=== PATIENT | male | born 1960 | race Caucasian/White ===

== ENCOUNTER 2019-10-19 12:38 | Emergency (ER) | payer BC ==
[~2019-10-19] VITALS: Ht 177.8 cm; Wt 92.1 kg
[2019-10-19] MEDS ORDERED: MESALAMINE E0.375 GM PO (13:05)
[2019-10-19] MEDS ORDERED: TRAZODONE HCL100 MG PO (13:06)
[2019-10-19] MEDS ORDERED: FENOFIBRATE160 MG PO (13:06)
[2019-10-19] MEDS ORDERED: METOPROLOL SUCC50 MG PO (13:06)
[2019-10-19] MEDS ORDERED: MIRALAX17 GM PO (16:56)
== END 2019-10-19 17:17 | disposition home or self-care (01) ==
LOC: ED 12:38
DX: K59.00 Constipation, unspecified (principal); N20.0 Calculus of kidney; N28.89 Other specified disorders of kidney and ureter; I10 Essential (primary) hypertension; F17.200 Nicotine dependence, unspecified, uncomplicated; Z79.899 Other long term (current) drug therapy
CPT/HCPCS: 74018; 74176; 80053; 81001; 83690; 83735; 85025; 96361; 96374; 99284-25; J1885; J7030

== ENCOUNTER 2020-07-10 07:03 | Emergency (ER) | payer BC ==
[~2020-07-10] VITALS: Ht 177.8 cm; Wt 88.6 kg
[~2020-07-10 07:03] MED LIST: FENOFIBRATE160 MG PO; MESALAMINE E0.375 GM PO; METOPROLOL SUCC50 MG PO; MIRALAX17 GM PO; TRAZODONE HCL100 MG PO
[2020-07-10] MEDS ORDERED: PROCTOSOL-HC30 GM TOP (07:46)
[2020-07-10] MEDS ORDERED: NORCO 5-325 TA1 EACH PO (08:19)
== END 2020-07-10 08:33 | disposition home or self-care (01) ==
LOC: ED 07:03
DX: K64.4 Residual hemorrhoidal skin tags (principal); I10 Essential (primary) hypertension; E78.00 Pure hypercholesterolemia, unspecified; Z79.899 Other long term (current) drug therapy
CPT/HCPCS: 80053; 85025; 99283

== ENCOUNTER 2021-07-16 06:15 | Day surgery (SDC) | payer BC ==
[~2021-07-16] VITALS: Ht 179.1 cm; Wt 89.8 kg
[~2021-07-16 06:15] MED LIST changes: +NORCO 5-325 TA1 EACH PO; +PROCTOSOL-HC30 GM TOP
--- NOTE | 2021-07-16 08:19 | NUR ---
07/16/21 0819 Keyla Lora 0814- PT ARRIVES TO PACU AWAKE AND TALKING. PT REPORTS NO PAIN OR NAUSEA. RESP EVEN AND UNLABORED. OXYGEN SAT MID TO HIGH 90'S ON 3L VIA NC.
--- NOTE | 2021-07-16 10:25 | NUR ---
PT IS ALERT, ORIENTED AND HAS HAD PREVIOUS SCOPES. PT MENTIONED SEVERAL TIMES HOW HUNGRY HE IS. ALL QUESTIONS ASKED ANSWERED. PT HAS A FRIEND THAT WILL TAKE HIM HOME FOLLOWING DC. PT REQUESTED PRAYER, HE DID REQUEST GLASSES CASE. CATY PATTERSON, WILL FOLLOW
--- NOTE | 2021-07-17 13:57 | OR ---
[facility] [address] [place], [place] [address] Signed DATE OF OPERATION: 07/16/2021 SURGEON: Castro Oneal MD PREOPERATIVE DIAGNOSIS: History of ulcerative colitis; current medical management mesalamine, asymptomatic. POSTOPERATIVE DIAGNOSES: 1. No evidence of active colitis. 2. Multiple small polyps dominantly hyperplastic. PROCEDURES: 1. Total colonoscopy to cecum with biopsy of cecum and rectum. 2. Cold morcellation polypectomy - multiple. ANESTHESIA: Intravenous sedation, fentanyl 100 mcg and Versed 10 mg total. INDICATION: This 61-year-old white man is a patient of JENIFER Gordillo. He has a known history of ulcerative colitis and has been on mesalamine for quite some time. He last underwent colonoscopy by Dr. Agapito Melendez approximately 8 years ago. He is currently symptom free on his mesalamine regimen. 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 At last colonoscopy, he did suffer what sounds like a polypectomy-related perforation, which was managed non-operatively. A central line was placed causing a pneumothorax with progression of problems and ultimately transferred to another institution for management. He currently has approximately four bowel movements a day, but no blood per rectum and no diarrhea. He does occasionally have abdominal pain. He is admitted at this time to undergo colonoscopy for surveillance. He understands the risks of bleeding, infection, and perforation. FINDINGS: The prep was excellent. Complete colonoscopy was undertaken to the cecum without question. He had no evidence of active colitis. He did have multiple small polyps, most of them hyperplastic. This included a polyp at 70 cm, one at 50 cm and another two at 25 cm, one at 20 cm and multiple probably 10 in the rectosigmoid. Some of the lowest rectosigmoid polyps may have had adenomatous change but most of these likely represent hyperplastic polyps. Electronically Signed By: CASTRO ONEAL MD 07/17/21 1357 PATIENT NAME: TALITA LEES OPERATIVE REPORT DATE OF : 62 REPORT #: [id number] PHYSICIAN: CASTRO ONEAL MD PCP: CECILY WHEELER PA-C REPORT IS CONFIDENTIAL AND NOT TO BE RELEASED WITHOUT AUTHORIZATION [facility] [address] [place], [place] [address] Signed DESCRIPTION OF PROCEDURE: The patient was brought to the endoscopy suite and placed in lateral decubitus position, given intravenous sedation to the point of slurred speech and nystagmus with full cardiopulmonary monitoring. Digital rectal examination was normal. An Olympus video colonoscope was passed in the rectum and manipulated throughout the colon ultimately intubating the cecum itself. The ileocecal valve and appendiceal orifice were normal. The biopsy was taken of the cecum to assess for occult colitis. There was no active colitis noted. The scope was carefully withdrawn and approximately 70 cm from the anal verge was a small polyp, this was probably hyperplastic and it was excised with cold morcellation technique. Further withdrawal to 50 cm showed another similar such polyp, it too was excised. Withdrawal up to 25 cm showed two additional polyps, both excised and one at 20 cm. Further withdrawal of the rectosigmoid showed multiple small similar such polyps, they were all excised probably 10 in total. A simple biopsy of the rectum was undertaken to assess for occult colitis as well, the scope was removed and the patient was taken to the recovery room in good condition. CONCLUDING DIAGNOSIS: No evidence of active colitis. He had multiple small polyps likely hyperplastic, which would be of no real concern generally speaking. PLAN: We will see him back in one month and review his pathology reports as regard to ulcerative colitis as well as those regarding the polyps to assure there were no adenomatous changes. Follow up interval will be determined largely on those findings. I would have him continue with mesalamine for the time being. MD MIKA Cooper/MAYCOL /[id number] cc: JENIFER Gordillo Electronically Signed By: CASTRO ONEAL MD 07/17/21 1357 PATIENT NAME: TALITA LEES OPERATIVE REPORT DATE OF : 62 REPORT #: [id number] PHYSICIAN: CASTRO ONEAL MD PCP: CECILY WHEELER PA-C REPORT IS CONFIDENTIAL AND NOT TO BE RELEASED WITHOUT AUTHORIZATION [facility] [address] [place] [id number] Signed Copies: ~ Electronically Signed By: CASTRO ONEAL MD 07/17/21 1357 PATIENT NAME: TALITA LEES OPERATIVE REPORT DATE OF : 62 REPORT #: [id number] PHYSICIAN: CASTRO ONEAL MD PCP: CECILY WHEELER PA-C REPORT IS CONFIDENTIAL AND NOT TO BE RELEASED WITHOUT AUTHORIZATION
--- NOTE | 2021-07-18 08:38 | PATH ---
[facility] [address] [facility] [place], [place] [address] Signed SPECIMEN(S): A CECUM BIOPSY SPECIMEN(S): B COLON POLYP AT 70 CM SPECIMEN(S): C COLON POLYP AT 50 CM SPECIMEN(S): D COLON POLYP AT 25 CM X2 SPECIMEN(S): E COLON POLYP AT 20 CM SPECIMEN(S): F SIGMOID/RECTAL POLYPS SPECIMEN(S): G RECTAL BIOPSY SPECIMEN SOURCE: A. CECUM BIOPSY B. COLON POLYP AT 70 CM C. COLON POLYP AT 50 CM D. COLON POLYP AT 25 CM X2 E. COLON POLYP AT 20 CM F. SIGMOID/RECTAL POLYPS G. RECTAL BIOPSY CLINICAL HISTORY: History of colitis. Post: Hyperplastic polyps/colon polyps MICROSCOPIC DESCRIPTION: Histologic sections of all submitted blocks are examined by light microscopy. These findings, together with the gross examination, support the pathologic diagnosis. FINAL PATHOLOGIC DIAGNOSIS: A. Cecum, biopsy: - Colonic mucosa with no significant pathologic changes. B. Colon, 70 cm, polypectomy: - Colonic mucosa with no significant pathologic changes. C. Colon, 50 cm, polypectomy: - Colonic mucosa with no significant pathologic changes. D. Colon, 25 cm, polypectomies: - Colonic mucosa with no significant pathologic changes. E. Colon, 20 cm, polypectomy: - Colonic mucosa with no significant pathologic changes. F. Colon, sigmoid/rectum, polypectomies: - Hyperplastic polyps. G. Rectum, biopsy: - Colonic mucosa with no significant pathologic changes. BRP:[id number] PATIENT NAME: TALITA LEES PATHOLOGY DATE OF : 62 REPORT #: [id number] PHYSICIAN: CARMEN CASTRO PCP: CECILY WHEELER PA-C REPORT IS CONFIDENTIAL AND NOT TO BE RELEASED WITHOUT AUTHORIZATION [facility] [address] [place], [place] [address] Signed GROSS DESCRIPTION: Seven specimens are received in seven containers, labeled "RA." A. The specimen, labeled "RA, cecum biopsy," is received in formalin and consists of two eid soft tissue fragments that measure 0.1 to 0.2 cm in greatest dimension. The specimen is entirely submitted in cassette (A1). B. The specimen, labeled "RA, colon polyp at 70 cm," is received in formalin and consists of one eid soft tissue fragment that measures 0.2 cm in greatest dimension. The specimen is entirely submitted in cassette (B1). C. The specimen, labeled "RA, colon polyp at 50 cm," is received in formalin and consists of two eid soft tissue fragments that measure 0.1 to 0.2 cm in greatest dimension. The specimen is entirely submitted in cassette (C1). D. The specimen, labeled "RA, colon polyp at 25 cm x 2," is received in formalin and consists of two eid soft tissue fragments that measure 0.2 cm in greatest dimension. The specimen is entirely submitted in cassette (D1). E. The specimen, labeled "RA, colon polyp 20 cm," is received in formalin and consists of two eid soft tissue fragments that measure 0.1 to 0.2 cm in greatest dimension. The specimen is entirely submitted in cassette (E1). F. The specimen, labeled "RA, rectosigmoid colon polyps," is received in formalin and consists of multiple eid soft tissue fragments that measure 1.7 x 1.2 x 0.1 cm aggregate. The specimen is entirely submitted in cassette (F1). G. The specimen, labeled "RA, rectum biopsy," is received in formalin and consists of two eid soft tissue fragments that measure 0.1 to 0.2 cm in greatest dimension. The specimen is entirely submitted in cassette (G1). JS (under the direct supervision of a pathologist) The Gross Description was prepared using a voice recognition system. The report was reviewed for accuracy; however, sound-alike word errors, addition and/or deletions may occur. If there is any question about this report, please contact Client Services. PERFORMING LABORATORY: The technical component was performed by [employer] [address] ([place]: Jeanne Kelly MD; CLIA# [id number]). Professional [facility], [address] [address] (CLIA# PATIENT NAME: TALITA LEES PATHOLOGY DATE OF : 62 REPORT #: [id number] PHYSICIAN: CARMEN CASTRO PCP: CECILY WHEELER PA-C REPORT IS CONFIDENTIAL AND NOT TO BE RELEASED WITHOUT AUTHORIZATION [facility] [address] [place], [place] [address] Signed [id number]). Diagnostician: Gorge Disla MD Pathologist Electronically Signed 07/18/2021 Copies: ~ PATIENT NAME: TALITA ELES PATHOLOGY DATE OF : 62 REPORT #: [id number] PHYSICIAN: CARMEN CASTRO PCP: CECILY WHEELER PA-C REPORT IS CONFIDENTIAL AND NOT TO BE RELEASED WITHOUT AUTHORIZATION
== END 2021-07-16 08:52 | disposition home or self-care (01) ==
LOC: OPS 06:15 → DS 06:15 → OPS 07:30
PROVIDERS: ATTEND Surgery
PROC: 0DBP8ZX Excision of Rectum, Via Natural or Artificial Opening Endoscopic, Diagnostic (ICD-10-PCS; 2021-07-16)
PROC: 0DBH8ZX Excision of Cecum, Via Natural or Artificial Opening Endoscopic, Diagnostic (ICD-10-PCS; principal; 2021-07-16 07:30)
DX: K63.5 Polyp of colon (principal); I10 Essential (primary) hypertension; F17.210 Nicotine dependence, cigarettes, uncomplicated; E78.5 Hyperlipidemia, unspecified; Z87.19 Personal history of other diseases of the digestive system
CPT/HCPCS: 99153; G0500; J2250; J3010

== ENCOUNTER 2024-08-16 12:20 | Emergency (ER) | payer BC ==
[~2024-08-16] VITALS: Ht 177.8 cm; Wt 92.4 kg
[2024-08-16] MEDS ORDERED: BUDESONIDE ER9 MG PO (12:29)
[2024-08-16] MEDS ORDERED: METOPROLOL SUC100 MG PO (12:30)
[2024-08-16] MEDS ORDERED: SODIUM CHLORIDE 0.9% 500 ML IV PRN (13:00)
[2024-08-16 13:07] LABS: BASOPHILS 0.8 % (0-2); EOSINOPHILS 1.4 % (0-6); HEMATOCRIT 40.2 % (35.0-50.0); HEMOGLOBIN 12.9 g/dL (12.0-18.0); LYMPHOCYTES 15.2 % (24-44); MCH 27.4 (27-36); MCHC 32.2 g/dl (30-36); MCV 85.1 fl (81-99); MONOCYTES 9.5 % (0-12); NEUTROPHILS 73.1 % (39-80); PLATELET COUNT 479 K/uL (140-440); RBC 4.72 M/ul (4.3-5.7); RDW 13.7 (10.5-15.0)
[2024-08-16 13:12] LABS: INR 0.99 (0.80-1.30); PROTIME 12.6 Sec (11.2-14.2)
[2024-08-16 13:14] LABS: PARTIAL THROMBOPLASTIN TIME 25.2 Sec (22.9-41.3)
[2024-08-16] MEDS ORDERED: HYDROmorphone HCL 1 MG/ML SYR IV ONE (13:15)
[2024-08-16] MEDS ORDERED: ondansetron HCL 4 MG/2 ML VIAL IV ONE (13:15)
[2024-08-16 13:20] LABS: ALBUMIN/GLOBULIN RATIO 0.81 (1.1-2.4); BILIRUBIN, TOTAL 0.2 ng/dL (0.2-1.0); BUN/CREATININE RATIO 8.88 (6.0-28.6); CREATININE, SERUM 1.35 mg/dL (0.70-1.30); PROTEIN, TOTAL 6.7 g/dL (6.4-8.2)
[2024-08-16 13:39] LABS: ABO A; ANTIBODY SCREEN NEGATIVE; RH POSITIVE
[2024-08-16] MEDS ORDERED: PERCOCET 5-3251 EACH PO (15:10)
[2024-08-16] MEDS ORDERED: AMOX TR-K CLV1 EAC1 PO (15:10)
[2024-08-16] MEDS ORDERED: METRONIDAZOLE500 MG PO (15:10)
[2024-08-16 15:20] VITALS: BP 156/94
== END 2024-08-16 15:21 | disposition home or self-care (01) ==
LOC: ED 12:20
PROVIDERS: Emergency Medicine
DX: K52.9 Noninfective gastroenteritis and colitis, unspecified (principal); I10 Essential (primary) hypertension; N28.1 Cyst of kidney, acquired; K76.89 Other specified diseases of liver; F17.200 Nicotine dependence, unspecified, uncomplicated; Z79.899 Other long term (current) drug therapy
CPT/HCPCS: 36415; 74174; 80053; 83690; 85025; 85610; 85730; 86850; 86900; 86901; 96375; 99284-25; J1171; J2405; J7040; Q9967

== ENCOUNTER 2025-01-31 11:38 | Day surgery (SDC) | payer BC ==
[~2025-01-31] VITALS: Ht 177.8 cm; Wt 93.2 kg
[~2025-01-31 11:38] MED LIST changes: +AMOX TR-K CLV1 EAC1 PO; +BUDESONIDE ER9 MG PO; +IBLOOD GLUCOSE TEST STRIP 1 EA TEST VI PRN; +LACTATED RINGER'S 1,000 ML IV SCH; +LIDOCAINE HCL 1% 5 ML SDV INJ ONE; +METOPROLOL SUC100 MG PO; +METRONIDAZOLE500 MG PO; +MIDAZOLAM HCL 5 MG/5 ML VIAL IV PRN; +PERCOCET 5-3251 EACH PO; +fentaNYL citrate 100 MCG/2 ML VIAL IV PRN
[2025-01-31 12:29] VITALS: BP 153/98
--- NOTE | 2025-01-31 12:31 | NUR ---
HAS FRIEND CRISTIAN TO PICK HIM UP.
[2025-01-31] MEDS ORDERED: fentaNYL citrate 100 MCG/2 ML VIAL ONE (13:00)
[2025-01-31] MEDS ORDERED: MIDAZOLAM HCL 5 MG/5 ML VIAL ONE (13:00)
--- NOTE | 2025-01-31 14:14 | NUR ---
01/31/25 Carl4 Stacy Royal PATIENT'S OXYGEN SATURATION IS 97% ON 2L VIA NC. OXYGEN IS TURNED OFF @ THIS TIME.
[2025-01-31 14:47] VITALS: BP 166/100
--- NOTE | 2025-02-02 09:58 | OR ---
[facility] [address] [place], [place] [address] Signed DATE OF OPERATION: 01/31/2025 SURGEON: Castro Oneal MD PREOPERATIVE DIAGNOSIS: Prior diagnosis of ulcerative colitis, now on mesalamine. POSTOPERATIVE DIAGNOSES: 1. Small polyp of cecum. 2. Minimal if any inflammation of rectum and rectosigmoid. PROCEDURE: Total colonoscopy to cecum with cold morcellation polypectomy x1 and random biopsies. ANESTHESIA: Intravenous sedation fentanyl 150 mcg, Versed 8 mg. INDICATION: This 64-year-old white man is a patient of Cecily Oliveira. He last underwent colonoscopy in July 2021. He has a history of ulcerative colitis and medical management including mesalamine. Colonoscopy in 2020 showed no gross evidence of active colitis, though he did have small polyps dominantly hyperplastic in appearance. Review of his path report showed no sign of inflammation and the polyps were confirmed as hyperplastic. His current medications include budesonide, fenofibrate, mesalamine, metoprolol, and trazodone. He was referred by Cecily Oliveira to a airport traffic controller in [place], seen only two weeks prior to my encounter with him where his dose of mesalamine was increased. He also had budesonide added to his regimen rather than mesalamine dose adjustment in any significant way upon further review. His airport traffic controller did recommend colonoscopy. Currently, his symptoms of colitis are minimal and he has had resolution of what was considered to be a flare of his disease in the past. He was admitted at this time to undergo colonoscopy of disease and assess for polyps and other abnormalities. He understands risk of bleeding, infection, and perforation, wished to proceed. FINDINGS: The prep was adequate. Complete colonoscopy was undertaken of cecum. There was a small polyp of the cecum, which might be hyperplastic. The remaining colon was reasonably normal in appearance of the sigmoid and rectum, had mild inflammation as manifest by low-grade edema, but no active ulceration or anything of that sort. Electronically Signed By: CASTRO ONEAL MD 02/02/25 0958 PATIENT NAME: TALITA LEES OPERATIVE REPORT DATE OF : 62 REPORT #: [id number] PHYSICIAN: CASTRO ONEAL MD PCP: CECILY OLIVEIRA PA-C REPORT IS CONFIDENTIAL AND NOT TO BE RELEASED WITHOUT AUTHORIZATION [facility] [address] [place], [place] [address] Signed DESCRIPTION OF PROCEDURE: The patient was brought to the endoscopy suite and placed in lateral decubitus position, given intravenous sedation to the point of slurred speech and nystagmus. Digital rectal examination was found to be normal. Olympus video colonoscope was passed in the rectum and manipulated throughout the colon ultimately intubating the cecum itself. Irrigation was required. There was a small polyp of the cecum which was probably hyperplastic. This was excised with cold morcellation technique. Biopsies were taken of the cecum, right colon, transverse, left colon, sigmoid and rectum upon withdrawal of scope. There was edema of the rectum and sigmoid, but not for colitis. Scope was removed. The patient was taken to the recovery room in good condition. CONCLUDING DIAGNOSIS: Minimal if any colitis. PLAN: Recommend followup in the office in 4 to 6 weeks. Medication adjustment might be an appropriate maneuver at that point, as he is on mesalamine and budesonide 9 mg daily. MD MIKA Cooper/MODL /[id number] cc: JENIFER Gordillo Copies: ~ Electronically Signed By: CASTRO ONEAL MD 02/02/25 0958 PATIENT NAME: TALITA LEES OPERATIVE REPORT DATE OF : 62 REPORT #: [id number] PHYSICIAN: CASTRO ONEAL MD PCP: CECILY OLIVEIRA PA-C REPORT IS CONFIDENTIAL AND NOT TO BE RELEASED WITHOUT AUTHORIZATION
--- NOTE | 2025-02-03 15:14 | PATH ---
[facility] [address] [facility] [place], [place] [address] Signed SPECIMEN(S): A CECUM BIOPSY SPECIMEN(S): B CECUM POLYP SPECIMEN(S): C ASCENDING BIOPSY SPECIMEN(S): D TRANSVERSE BIOPSY SPECIMEN(S): E DESCENDING BIOPSY SPECIMEN(S): F SIGMOID BIOPSY SPECIMEN(S): G RECTUM BIOPSY SPECIMEN SOURCE: A. CECUM BIOPSY B. CECUM POLYP C. ASCENDING BIOPSY D. TRANSVERSE BIOPSY E. DESCENDING BIOPSY F. SIGMOID BIOPSY G. RECTUM BIOPSY CLINICAL HISTORY: History of colitis and polyps. Post: Polyp in cecum/mild inflammation of sigmoid and rectum A) biopsy, B) polyp, C-G) biopsy FINAL PATHOLOGIC DIAGNOSIS: A. Cecum biopsy: - Colonic mucosa, negative for specific diagnostic abnormality. B. Cecum polyp: - Colonic mucosa with slight polypoid features focally suggestive of serrated polyp/adenoma (one fragment). C. Ascending biopsy: - Colonic mucosa, negative for specific diagnostic abnormality. D. Transverse biopsy: - Colonic mucosa, negative for specific diagnostic abnormality. E. Descending biopsy: - Colonic mucosa, negative for specific diagnostic abnormality. F. Sigmoid biopsy: - Colonic mucosa, negative for specific diagnostic abnormality. G. Rectum biopsy: - Colonic mucosa, negative for specific diagnostic abnormality. JVR:[facility] MICROSCOPIC EXAMINATION: PATIENT NAME: TALITA LEES PATHOLOGY DATE OF : 62 REPORT #: [id number] PHYSICIAN: CARMEN CASTRO PCP: CECILY WHEELER PA-C REPORT IS CONFIDENTIAL AND NOT TO BE RELEASED WITHOUT AUTHORIZATION [facility] [address] [place], [place] [address] Signed Histologic sections of all submitted blocks are examined by light microscopy. These findings, together with the gross examination, support the pathologic diagnosis. GROSS DESCRIPTION: A. The specimen, labeled and designated "Mauricio, R, cecum biopsy," is received in formalin and consists of three eid soft tissue fragments, ranging from 0.1-0.3 cm. Entirely submitted in (A1). B. The specimen, labeled and designated "Mauricio, R, cecum polyp," is received in formalin and consists of one eid soft tissue fragment, 0.5 cm. Entirely submitted in (B1). C. The specimen, labeled and designated "Mauricio, R, ascending biopsy," is received in formalin and consists of two eid soft tissue fragments, ranging from 0.7-1.1 cm. Entirely submitted in (C1). D. The specimen, labeled and designated "Mauricio, R, transverse biopsy," is received in formalin and consists of three eid soft tissue fragments, ranging from 0.1-0.3 cm. Entirely submitted in (D1). E. The specimen, labeled and designated "Mauricio, R, descending biopsy," is received in formalin and consists of two eid soft tissue fragments, ranging from 0.2-0.3 cm. Entirely submitted in (E1). F. The specimen, labeled and designated "Mauricio, R, sigmoid biopsy," is received in formalin and consists of three eid soft tissue fragments, ranging from 0.1-0.4 cm. Entirely submitted in (F1). G. The specimen, labeled and designated "Mauricio, R, rectum biopsy," is received in formalin and consists of two eid soft tissue fragments, ranging from 0.4-0.9 cm. Entirely submitted in (G1). AB (under the direct supervision of a pathologist) The Gross Description was prepared using a voice recognition system. The report was reviewed for accuracy; however, sound-alike word errors, addition and/or deletions may occur. If there is any question about this report, please contact Client Services. PERFORMING LABORATORY: Technical component was performed by [employer], [address] [place] [id number] (CLIA# [id number]). Professional interpretation was performed by [facility], [address] [place] [id number] (CLIA#: [id number]). Diagnostician: Alexys Floyd MD Pathologist Electronically Signed 02/03/2025 PATIENT NAME: TALITA LEES PATHOLOGY DATE OF : 62 REPORT #: [id number] PHYSICIAN: CARMEN CASTRO PCP: CECILY WHEELER PA-C REPORT IS CONFIDENTIAL AND NOT TO BE RELEASED WITHOUT AUTHORIZATION [address] [place] [address] Signed Copies: ~ PATIENT NAME: TALITA LEES PATHOLOGY DATE OF : 62 REPORT #: [id number] PHYSICIAN: CARMEN CASTRO PCP: CECILY WHEELER PA-C REPORT IS CONFIDENTIAL AND NOT TO BE RELEASED WITHOUT AUTHORIZATION
== END 2025-01-31 14:57 | disposition home or self-care (01) ==
LOC: DS 11:38
PROVIDERS: ATTEND Surgery
PROC: 0DBL8ZX Excision of Transverse Colon, Via Natural or Artificial Opening Endoscopic, Diagnostic (ICD-10-PCS; 2025-01-31)
PROC: 0DBN8ZX Excision of Sigmoid Colon, Via Natural or Artificial Opening Endoscopic, Diagnostic (ICD-10-PCS; 2025-01-31)
PROC: 0DBP8ZX Excision of Rectum, Via Natural or Artificial Opening Endoscopic, Diagnostic (ICD-10-PCS; 2025-01-31)
PROC: 0DBF8ZX Excision of Right Large Intestine, Via Natural or Artificial Opening Endoscopic, Diagnostic (ICD-10-PCS; 2025-01-31)
PROC: 0DBG8ZX Excision of Left Large Intestine, Via Natural or Artificial Opening Endoscopic, Diagnostic (ICD-10-PCS; 2025-01-31)
PROC: 0DBH8ZX Excision of Cecum, Via Natural or Artificial Opening Endoscopic, Diagnostic (ICD-10-PCS; principal; 2025-01-31 13:00)
DX: K51.90 Ulcerative colitis, unspecified, without complications (principal); K63.5 Polyp of colon; I10 Essential (primary) hypertension; Z79.899 Other long term (current) drug therapy
CPT/HCPCS: 99153; G0500; J2250; J3010; J7121